=== PATIENT | male | born 1960 | race Caucasian/White ===

== ENCOUNTER 2017-08-09 18:27 | Emergency (ER) | payer MEDICARE ==
[2016-06-28 14:18] VITALS: Wt 79.4 kg
[~2017-08-09 18:27] MED LIST changes: -CHOL10005 PO; -MULT-1335 PO
--- NOTE | 2017-08-09 18:36 | ER Report ---
History and Physical Time Seen By MD: 18:36 (GRAY JORDAN) HPI/ROS CHIEF COMPLAINT: Black stool, nausea vomiting HISTORY OF PRESENT ILLNESS: 57-year-old male patient presents to emergency room with complaint of black stool, nausea or vomiting. Patient states he is not felt well for the past several days. States things got worse on Saturday. States that he's had emesis 2. He states that on Saturday he noted that his oxygen levels were low at 85%. He states that today he turned his oxygen up to 4 L. He states that that time that it remained at 85%. He states that time he decided to come into the emergency room for evaluation. Patient states he's had fevers and chills. He is concerned that he may have the flu. He states that he' s felt extremely lightheaded especially when he was moving around. REVIEW OF SYSTEMS: Respiratory: As noted above. Cardiovascular: No chest pain, no palpitations. Gastrointestinal: As noted above Musculoskeletal: No back pain. (GRAY JORDAN) Allergies: Coded Allergies: NSAIDS (Non-Steroidal Anti-Inflamma (Verified Allergy, Severe, ANAPHYLACTIC, 08/09/17) iodine (Verified Allergy, Severe, FLUSHING, SHORTNESS OF BREATH, 08/09/17) ALSO WITH IV CONTRAST FOR CT SCANS tolmetin (Verified Allergy, Severe, ANAPHYLAXIS, 08/09/17) colchicine (Verified Allergy, Mild, RED STREAKS FROM ANKLES TO CALVES, ) allopurinol (Verified Allergy, Unknown, RASH, 08/09/17) Home Meds Reported Medications Cholecalciferol (Vitamin D3) (VITAMIN D3) 1,000 Unit Tablet, 1000 UNIT PO, TAB 08/09/17 Multivitamin With Minerals (MULTIPLE VITAMIN) 1 Each Tablet, 1 EACH PO, TAB 08/09/17 Alprazolam (XANAX) 0.5 Mg Tablet, 1 TAB PO BID, TAB 12/06/16 Trazodone Hcl (TRAZODONE HCL) 150 Mg Tablet, 1.5 TAB PO QHS Y for SLEEP, #45 MG 1 Refill 06/30/16 Past Medical/Surgical History Patient has a past medical history of seizures, NC, hypertension, sleep apnea, pneumonia, cholecystitis, prostate problems, arthritis, back pain, alcohol abuse , depression, panic disorder, substance abuse. Patient has a surgical history of laminectomy, left knee surgery, right elbow surgery, cholecystectomy. Patient has a family medical history of cancer. (GRAY JORDAN) Reviewed Nurses Notes: Yes (GRAY JORDAN) Hx Smoking: No Smoking Status: Never Smoker Exposure to Second Hand Smoke?: No Hx Substance Use Disorder: No Hx Alcohol Use: Yes (dry since september) (GRAY JORDAN) Constitutional Vital Sign - Last 24 Hours 08/09/17 08/09/17 08/09/17 08/09/17 18:27 18:29 18:30 18:32 Temp 97.7 Resp 18 B/P (MAP) 74/49 68/37 (47) 74/49 (57) O2 Delivery Nasal Cannula O2 Flow Rate 4.0 08/09/17 08/09/17 08/09/17 08/09/17 18:36 18:39 18:57 19:00 Pulse 116 B/P (MAP) 58/40 (46) 64/44 (51) 59/35 (43) Pulse Ox 100 08/09/17 08/09/17 08/09/17 08/09/17 19:27 19:42 19:57 20:00 Pulse 107 103 B/P (MAP) 77/57 (64) 78/63 (68) Pulse Ox 100 98 08/09/17 08/09/17 08/09/17 08/09/17 20:30 20:35 20:40 21:21 Pulse 102 106 B/P (MAP) 83/59 (67) 75/60 (65) Pulse Ox 98 100 08/09/17 08/09/17 08/09/17 08/09/17 21:25 21:30 22:00 22:10 Pulse 100 100 B/P (MAP) 76/61 (66) 86/51 (63) Pulse Ox 100 100 08/09/17 22:30 B/P (MAP) 113/76 (88) (HERNANDO MEAD MD) Physical Exam General Appearance: The patient is alert, has no immediate need for airway protection and no current signs of toxicity. ENT: Tympanic membranes are pearly-cherry, auditory canals are patent, mucus mucous membranes are dry. Respiratory: Chest is non tender, lungs are clear to auscultation. Cardiac: regular rate and rhythm Gastrointestinal: Abdomen is soft and non tender, no masses, bowel sounds are hypoactive. Musculoskeletal: Neck: Neck is supple and non tender. Extremities have full range of motion and are non tender. Skin: No rashes or lesions. Patient appears to be incredibly pale, is pale on the underside of his eyelids. DIFFERENTIAL DIAGNOSIS: After history and physical exam differential diagnosis was considered for anemia, GI bleed, influenza, sepsis. (GRAY JORDAN) Medical Decision Making Data Points Result Diagram: 08/09/17192608/09/171928 Laboratory Hematology Test 08/09/17 19:18 08/09/17 19:27 08/09/17 19:29 08/09/17 19:41 Influenza Virus Type A (PCR) Negative (NEGATIVE) Influenza Virus Type B (PCR) Negative (NEGATIVE) Red Blood Count 2.90 M/uL (4.00-5.60) Mean Corpuscular Volume 96.7 fL (80.0-96.0) Mean Corpuscular Hemoglobin 33.5 pg (26.0-33.0) Mean Corpuscular Hemoglobin Concent 34.6 g/dL (32.0-36.0) Red Cell Distribution Width 18.0 % (11.5-14.5) Mean Platelet Volume 8.3 fL (7.2-11.1) Neutrophils (%) (Auto) 80.7 % (39.4-72.5) Lymphocytes (%) (Auto) 14.6 % (17.6-49.6) Monocytes (%) (Auto) 4.4 % (4.1-12.4) Eosinophils (%) (Auto) 0.1 % (0.4-6.7) Basophils (%) (Auto) 0.2 % (0.3-1.4) Nucleated RBC Relative Count (auto) 0.1 /100WBC Neutrophils # (Auto) 13.8 K/uL (2.0-7.4) Lymphocytes # (Auto) 2.5 K/uL (1.3-3.6) Monocytes # (Auto) 0.8 K/uL (0.3-1.0) Eosinophils # (Auto) 0.0 K/uL (0.0-0.5) Basophils # (Auto) 0.0 K/uL (0.0-0.1) Nucleated RBC Absolute Count (auto) 0.01 K/uL Prothrombin Time 15.3 seconds (12.0-14.4) Prothromb Time International Ratio 1.20 Activated Partial Thromboplast Time 31 seconds (23-35) Lactate 8.1 mmol/L (0.7-2.1) Troponin I 0.020 ng/ml Sodium Level 136 mmol/L (137-145) Potassium Level 3.4 mmol/L (3.5-5.0) Chloride Level 88 mmol/L (98-107) Carbon Dioxide Level 29 mmol/L (22-30) Blood Urea Nitrogen 55 mg/dl (9-21) Creatinine 1.70 mg/dl (0.66-1.25) Glomerular Filtration Rate Calc 41.5 Random Glucose 122 mg/dl (75-110) Calcium Level 8.0 mg/dl (8.4-10.2) Total Bilirubin 1.2 mg/dl (0.2-1.3) Aspartate Amino Transf (AST/SGOT) 30 U/L (0-35) Alanine Aminotransferase (ALT/SGPT) 24 U/L (0-56) Alkaline Phosphatase 43 U/L (0-126) Total Protein 5.2 gm/dl (6.3-8.2) Albumin 2.8 g/dl (3.5-5.0) Amylase Level 47 U/L (0-110) Lipase 68 U/L (23-300) Stool Occult Blood (IFOB) Negative (NEGATIVE) Test 08/09/17 22:30 Urine Color Yellow Urine Clarity Slightly-cloudy Urine pH 6.0 pH (4.8-9.5) Urine Specific Ralph 1.026 Urine Protein Negative mg/dL (NEGATIVE) Urine Glucose (UA) Negative mg/dL (NEGATIVE) Urine Ketones Negative mg/dL (NEGATIVE) Urine Blood Negative (NEGATIVE) Urine Nitrite Negative (NEGATIVE) Urine Bilirubin Negative (NEGATIVE) Urine Urobilinogen Negative mg/dL (0.2-1.9) Urine Leukocyte Esterase Negative (NEGATIVE) Urine RBC None /HPF (0-2/HPF) Urine WBC 3 /HPF (0-5/HPF) Urine Squamous Epithelial Cells None /LPF (NONE-FEW) Urine Bacteria Negative /HPF (NONE-FEW) Urine Hyaline Casts Many /LPF (NONE-FEW) Urine Mucus Few /HPF (NONE-FEW) Chemistry Test 08/09/17 19:18 08/09/17 19:27 08/09/17 19:29 08/09/17 19:41 Influenza Virus Type A (PCR) Negative (NEGATIVE) Influenza Virus Type B (PCR) Negative (NEGATIVE) White Blood Count 17.1 k/uL (4.5-11.0) Red Blood Count 2.90 M/uL (4.00-5.60) Hemoglobin 9.7 g/dL (14.0-18.0) Hematocrit 28.1 % (42.0-52.0) Mean Corpuscular Volume 96.7 fL (80.0-96.0) Mean Corpuscular Hemoglobin 33.5 pg (26.0-33.0) Mean Corpuscular Hemoglobin Concent 34.6 g/dL (32.0-36.0) Red Cell Distribution Width 18.0 % (11.5-14.5) Platelet Count 156 K/uL (150-450) Mean Platelet Volume 8.3 fL (7.2-11.1) Neutrophils (%) (Auto) 80.7 % (39.4-72.5) Lymphocytes (%) (Auto) 14.6 % (17.6-49.6) Monocytes (%) (Auto) 4.4 % (4.1-12.4) Eosinophils (%) (Auto) 0.1 % (0.4-6.7) Basophils (%) (Auto) 0.2 % (0.3-1.4) Nucleated RBC Relative Count (auto) 0.1 /100WBC Neutrophils # (Auto) 13.8 K/uL (2.0-7.4) Lymphocytes # (Auto) 2.5 K/uL (1.3-3.6) Monocytes # (Auto) 0.8 K/uL (0.3-1.0) Eosinophils # (Auto) 0.0 K/uL (0.0-0.5) Basophils # (Auto) 0.0 K/uL (0.0-0.1) Nucleated RBC Absolute Count (auto) 0.01 K/uL Prothrombin Time 15.3 seconds (12.0-14.4) Prothromb Time International Ratio 1.20 Activated Partial Thromboplast Time 31 seconds (23-35) Lactate 8.1 mmol/L (0.7-2.1) Troponin I 0.020 ng/ml Glomerular Filtration Rate Calc 41.5 Calcium Level 8.0 mg/dl (8.4-10.2) Total Bilirubin 1.2 mg/dl (0.2-1.3) Aspartate Amino Transf (AST/SGOT) 30 U/L (0-35) Alanine Aminotransferase (ALT/SGPT) 24 U/L (0-56) Alkaline Phosphatase 43 U/L (0-126) Total Protein 5.2 gm/dl (6.3-8.2) Albumin 2.8 g/dl (3.5-5.0) Amylase Level 47 U/L (0-110) Lipase 68 U/L (23-300) Stool Occult Blood (IFOB) Negative (NEGATIVE) Test 08/09/17 22:30 Urine Color Yellow Urine Clarity Slightly-cloudy Urine pH 6.0 pH (4.8-9.5) Urine Specific Ralph 1.026 Urine Protein Negative mg/dL (NEGATIVE) Urine Glucose (UA) Negative mg/dL (NEGATIVE) Urine Ketones Negative mg/dL (NEGATIVE) Urine Blood Negative (NEGATIVE) Urine Nitrite Negative (NEGATIVE) Urine Bilirubin Negative (NEGATIVE) Urine Urobilinogen Negative mg/dL (0.2-1.9) Urine Leukocyte Esterase Negative (NEGATIVE) Urine RBC None /HPF (0-2/HPF) Urine WBC 3 /HPF (0-5/HPF) Urine Squamous Epithelial Cells None /LPF (NONE-FEW) Urine Bacteria Negative /HPF (NONE-FEW) Urine Hyaline Casts Many /LPF (NONE-FEW) Urine Mucus Few /HPF (NONE-FEW) Coagulation Test 08/09/17 19:27 Prothrombin Time 15.3 seconds Prothromb Time International Ratio 1.20 Activated Partial Thromboplast Time 31 seconds Urinalysis Test 08/09/17 22:30 Urine Color Yellow Urine Clarity Slightly-cloudy Urine pH 6.0 pH (4.8-9.5) Urine Specific Ralph 1.026 Urine Protein Negative mg/dL (NEGATIVE) Urine Glucose (UA) Negative mg/dL (NEGATIVE) Urine Ketones Negative mg/dL (NEGATIVE) Urine Blood Negative (NEGATIVE) Urine Nitrite Negative (NEGATIVE) Urine Bilirubin Negative (NEGATIVE) Urine Urobilinogen Negative mg/dL (0.2-1.9) Urine Leukocyte Esterase Negative (NEGATIVE) Urine RBC None /HPF (0-2/HPF) Urine WBC 3 /HPF (0-5/HPF) Urine Squamous Epithelial Cells None /LPF (NONE-FEW) Urine Bacteria Negative /HPF (NONE-FEW) Urine Hyaline Casts Many /LPF (NONE-FEW) Urine Mucus Few /HPF (NONE-FEW) (HERNANDO MEAD MD) EKG/Imaging EKG Interpretation 12 lead EKG: Rhythm: Sinus tachycardia with ventricular rate of 115 bpm [place]: normal QRS: normal ST segments: normal Imaging EXAMINATION: CT abdomen and pelvis with IV contrast HISTORY: Vomiting. TECHNIQUE: Axial CT images of the abdomen and pelvis were obtained with IV contrast, with coronal and sagittal 2D reconstructed images. One of the following dose optimization techniques was utilized in the performance of this exam: Automated exposure control; adjustment of the mA and/ or kV according to the patient's size; or use of an iterative reconstruction technique. Specific details can be referenced in the facility's radiology CT exam operational policy. Contrast: 75 mL of IV Isovue-370. COMPARISON: CT abdomen without contrast 01/23/2013. CT abdomen/pelvis without contrast 02/28/2009. FINDINGS: Liver: Diffuse fatty infiltration of the liver. No focal liver mass. The hepatic veins and portal veins are patent. Gallbladder and bile ducts: Cholecystectomy. No bile duct dilatation. Spleen: Negative. Pancreas: Negative. Adrenal glands: Negative. Kidneys: Normal size and morphology of both kidneys, with normal parenchymal enhancement. No hydronephrosis or urinary calculi. Bowel and peritoneum: The small bowel and colon are normal in caliber. No bowel obstruction. There are few scattered colonic diverticula, without evidence of diverticulitis. Adjacent to the mid sigmoid colon in the anterior left pelvis there is a small focus of pericolonic stranding with rounded central fat attenuation, with a characteristic CT appearance for epiploic appendagitis (axial image 107 and coronal image 46). No bowel wall thickening. Unremarkable appendix in the mid right abdomen. Small hiatal hernia. No free fluid or free intraperitoneal air. Pelvic structures: Negative. Lymph node assessment: Negative. Vessels: Negative. Musculoskeletal: There is mild superior endplate wedging of T12, L1, L2, L3, and L4, likely chronic in nature. No acute osseous findings. Body wall: Negative. Lung bases: Negative. IMPRESSION: 1. There is some localized pericolonic stranding adjacent to the mid sigmoid colon with a rounded focus of central fat attenuation. This has a typical CT appearance for epiploic appendagitis, which could be acute or nonacute. This could represent a source of left lower quadrant pain and should be correlated clinically. 2. No other acute intra-abdominal findings. 3. Colonic diverticulosis, without evidence of diverticulitis. 4. Unremarkable appendix. 5. Hepatic steatosis. 6. Prior cholecystectomy. 7. Small hiatal hernia. Report Dictated By: Alec Bowen MD at 08/09/2017 9:27 PM Report E-Signed By: Alec Bowen MD at 08/09/2017 9:36 PM CHEST PA AND LATERAL 08/09/2017 6:45 PM. INDICATION: Shortness of breath. COMPARISON: Multiple prior examinations including CT and radiographs from 2016. FINDINGS: Lungs are well-expanded. No suspicious consolidation. Pleural parenchymal changes at the left lateral costophrenic sulcus are similar to prior. No pneumothorax or pleural effusion. Pulmonary vasculature is unremarkable. Heart size is normal. Bilateral remote rib fractures and presumed postoperative absence of the posterior aspect of the left 5th rib. IMPRESSION: No acute cardiopulmonary abnormality. Report Dictated By: Candido Rutherford MD at 08/09/2017 8:30 PM Report E-Signed By: Candido Rutherford MD at 08/09/2017 8:32 PM (GRAY JORDAN) ED Course/Re-evaluation ED Course Patient was admitted to an exam room, history and physical were obtained. Differential diagnoses were considered. On examination patient has no obvious abdominal tenderness, does have what appears to be blood on his face and on his left hand. Blood pressure is low, 70s over 50s. Patient appears very pale, is pale under his eyelids. A CBC, CMP, urinalysis, EKG, chest x-ray, type and screen were done. Patient had an elevated white count of 17,000, H&H was 9.7 and 16. I believe that that is likely due to the patient being hemoconcentrated. CMP shows a be in of 55 and a creatinine 1.7. An occult stool sample was obtained which was negative. Lactic acid was obtained which was 8.1. Urinalysis was obtained as well which showed 3 white blood cells otherwise negative. A culture was obtained as well as blood cultures. I discussed the case with Dr. Roberts, general surgeon, who recommended CT scan of the abdomen and pelvis. That was done which showed a epiploic appendagitis. I did review the images myself and was unable to find the area in which the radiologist was talking about. I discussed the results with Dr. Roberts, she recommended admission to the hospitalist as she is concerned about a possible sepsis. I spoke with Dr. Murdock, hospitalist. He felt that this was a GI bleed and recommended transfer to a more acute setting. I then spoke with Dr. Wahl and Dr. Olmedo, gastro-gastroenterology and hospitalist at [facility], who recommended octreotide, making the patient nothing by mouth, placing him on a PPI drip, giving him antibiotics and accept the patient for transfer. He also recommended a PT and PTT to be done. Those results were INR of 1.3, PTT of 15. I discussed this with the patient who verbalized understanding and agreement with plan. Decision to Disposition Date: Aug 09, 2017 Decision to Disposition Time: 23:24 (GRAY JORDAN) Depart Departure Latest Vital Signs Vital Signs Date Time Temp Pulse Resp B/P (MAP) Pulse Ox O2 Delivery O2 Flow Rate FiO2 08/09/17 22:30 113/76 (88) 08/09/17 22:10 100 100 08/09/17 18:29 97.7 18 Nasal Cannula 08/09/17 18:27 4.0 (HERNANDO MEAD MD) Impression: Primary Impression: GI bleed Additional Impressions: Lactic acid acidosis Dehydration Condition: Condition Unchanged Disposition: XFER TO [facility] Referrals: BRAULIO CONCEPCION (PCP) LACE WEAVER/PA consult with MD: Verbally (HERNANDO MEAD MD) Problem Qualifiers Primary Impression: GI bleed GI bleed type/associated pathology: unspecified gastrointestinal hemorrhage type Qualified Codes: K92.2 - Gastrointestinal hemorrhage, unspecified GRAY JORDAN Aug 09, 2017 18:36 HERNANDO MEAD MD Aug 10, 2017 00:43
[2017-08-09] MEDS ORDERED: ONDANSETRON 4 MG/2 ML VIAL IVP ONE (18:45)
[2017-08-09] MEDS ORDERED: PANTOPRAZOLE SOD(*)40 MG VIAL 80 MG in NS(*) 0.9% 100 ML BAG 100 ML IV SCH (18:45)
[2017-08-09] MEDS ORDERED: NS(*) 0.9% 1000 ML BAG 1,000 ML IV ONE ×3 (18:45→22:00)
--- NOTE | 2017-08-09 19:09 | EKG ---
FAC[place] [facility] [place]IENT NAME: CLEMENTE RIVERA : [id number] MR: [id number] V: [id number] EXAM DATE: ORDERING PHYSICIAN: GRAY JORDAN TECHNOLOGIST: ISAK Gordon Reason : FLU Blood Pressure : / mmHG Vent. Rate : 115 BPM Atrial Rate : 115 BPM P-R Int : 140 ms QRS Dur : 088 ms QT Int : 362 ms P-R-T Axes : 027 -25 063 degrees QTc Int : 500 ms Sinus tachycardia Inferior infarct (cited on or before 09-AUG-2017) Abnormal ECG When compared with ECG of 06-DEC-2016 15:48, T wave amplitude has increased in Anterior leads Confirmed by ALVINO CARBAJAL ([id number]) on 08/09/2017 11:25:00 PM Referred By: GRAY Confirmed By:ALVINO CARBAJAL
[2017-08-09 19:38] LABS: PLATELET COUNT, AUTOMATED 156 K/uL (150-450)
[2017-08-09] MEDS ORDERED: MULT-1335 PO (19:45)
[2017-08-09] MEDS ORDERED: CHOL10005 PO (19:45)
[2017-08-09] MEDS ORDERED: IOPAMIDOL 76% 75 ML INFUS BTL 75 ML ONE (20:31)
--- NOTE | 2017-08-09 20:36 | RADIOLOGY IMAGING REPORT ---
FACILITY: [facility] PATIENT NAME: Godfrey Marino : 1960 MR: [id number] V: [id number] EXAM DATE: ORDERING PHYSICIAN: GRAY JORDAN TECHNOLOGIST: Location: [facility] Patient: Godfrey Marino : 1960 Visit/Account:[id number] Date of Sevice: 08/09/2017 CHEST PA AND LATERAL 08/09/2017 6:45 PM. INDICATION: Shortness of breath. COMPARISON: Multiple prior examinations including CT and radiographs from 12/06/2016. FINDINGS: Lungs are well-expanded. No suspicious consolidation. Pleural parenchymal changes at the left lateral costophrenic sulcus are similar to prior. No pneumothorax or pleural effusion. Pulmona ry vasculature is unremarkable. Heart size is normal. Bilateral remote rib fractures and presumed p ostoperative absence of the posterior aspect of the left 5th rib. IMPRESSION: No acute cardiopulmonary abnormality. Report Dictated By: Candido Rutherford MD at 08/09/2017 8:30 PM Report E-Signed By: Candido Rutherford MD at 08/09/2017 8:32 PM [id number]
--- NOTE | 2017-08-09 21:40 | RADIOLOGY IMAGING REPORT ---
FACILITY: [facility] PATIENT NAME: Godfrey Marino : 1960 MR: [id number] V: [id number] EXAM DATE: ORDERING PHYSICIAN: GRAY JORDAN TECHNOLOGIST: Location: [facility] Patient: Godfrey Marino : 1960 Visit/Account:[id number] Date of Sevice: 08/09/2017 EXAMINATION: CT abdomen and pelvis with IV contrast HISTORY: Vomiting. TECHNIQUE: Axial CT images of the abdomen and pelvis were obtained with IV contrast, with coronal a nd sagittal 2D reconstructed images. One of the following dose optimization techniques was utilized in the performance of this exam: Autom ated exposure control; adjustment of the mA and/or kV according to the patient's size; or use of an i terative reconstruction technique. Specific details can be referenced in the facility's radiology C T exam operational policy. Contrast: 75 mL of IV Isovue-370. COMPARISON: CT abdomen without contrast 01/23/2013. CT abdomen/pelvis without contrast 02/28/2009. FINDINGS: Liver: Diffuse fatty infiltration of the liver. No focal liver mass. The hepatic veins and portal ve ins are patent. Gallbladder and bile ducts: Cholecystectomy. No bile duct dilatation. Spleen: Negative. Pancreas: Negative. Adrenal glands: Negative. Kidneys: Normal size and morphology of both kidneys, with normal parenchymal enhancement. No hydrone phrosis or urinary calculi. Bowel and peritoneum: The small bowel and colon are normal in caliber. No bowel obstruction. There a re few scattered colonic diverticula, without evidence of diverticulitis. Adjacent to the mid sigmoid colon in the anterior left pelvis there is a small focus of pericolonic stranding with rounded centr al fat attenuation, with a characteristic CT appearance for epiploic appendagitis (axial image 107 an d coronal image 46). No bowel wall thickening. Unremarkable appendix in the mid right abdomen. Small hiatal hernia. No free fluid or free intraperitoneal air. Pelvic structures: Negative. Lymph node assessment: Negative. Vessels: Negative. Musculoskeletal: There is mild superior endplate wedging of T12, L1, L2, L3, and L4, likely chronic in nature. No acute osseous findings. Body wall: Negative. Lung bases: Negative. IMPRESSION: 1. There is some localized pericolonic stranding adjacent to the mid sigmoid colon with a rounded foc us of central fat attenuation. This has a typical CT appearance for epiploic appendagitis, which coul d be acute or nonacute. This could represent a source of left lower quadrant pain and should be corre lated clinically. 2. No other acute intra-abdominal findings. 3. Colonic diverticulosis, without evidence of diverticulitis. 4. Unremarkable appendix. 5. Hepatic steatosis. 6. Prior cholecystectomy. 7. Small hiatal hernia. Report Dictated By: Alec Bowen MD at 08/09/2017 9:27 PM Report E-Signed By: Alec Bowen MD at 08/09/2017 9:36 PM WSN:[id number]
[2017-08-09] MEDS ORDERED: LIDOCAINE 2% 200MG/10ML UROJET TP ONE (22:05)
[2017-08-09] MEDS ORDERED: PIPERACILLIN/TAZO*3.375GM VIAL 3.375 GM in NS(*) 0.9% 100 ML ADDVANT BAG 100 ML IVPB ONE (23:10)
[2017-08-09] MEDS ORDERED: OCTREOTIDE ACE 200 MCG/ML 5 ML VIAL IVP ONE (23:20)
[2017-08-09] MEDS ORDERED: PANTOPRAZOLE SOD(*)40 MG VIAL 80 MG in NS(*) 0.9% 100 ML BAG 100 ML IV ONE (23:20)
[2017-08-09 23:26] LABS: INR 1.2
[2017-08-10] MEDS ORDERED: ONDANSETRON 4 MG/2 ML VIAL IVP ONE (00:35)
[2017-08-10 01:30] VITALS: BP 107/71
== END 2017-08-10 02:20 | disposition short-term general hospital (02) ==
LOC: ER 18:46
DX: K92.2 Gastrointestinal hemorrhage, unspecified (principal); E87.2 Acidosis; E86.0 Dehydration
CPT/HCPCS: 36415; 71046; 74177; 81001; 82150; 82274; 83605; 83690; 84484; 85025; 85610; 85730; 86850; 86900; 86901; 87040; 87088; 87502; 93005; 96361; 96365; 96366; 96367; 96375; 96376; 99285; A9270; C9113; J2405; J2543; J7030; J7050; Q9967; 82040; 82247; 82310; 82374; 82435; 82565; 82947; 84075; 84132; 84155; 84295; 84450; 84460; 84520; 87077; 87186; J2354

== ENCOUNTER → 2017-08-09 | Outpatient (CLI) | payer MEDICARE ==
[2016-06-28 14:18] VITALS: BMI 35.1
[~2017-08-09] MED LIST: ACE500 PO; ALP1 PO; ALPR-429 PO; ALPR-436 PO; ALPR-445 PO; ALPR-700 PO; AML5 PO; ASCO-191 PO; AUG875 PO; AZI250 PO; Alprazolam PO; CARV12.577 PO; CEP500 PO; CEPH-13 PO; CEPH250C37 PO; CHOL10005 PO; CHOL200074 PO; DABI150C3 PO; DIA5 PO; DUL30 PO; FOLTX PO; GABA-488 PO; GABA-490 PO; KRIL1CAP12 PO; LACT1CAP12 PO; LID5T TP; LIS10 PO; LISI-362 PO; LISI20TA29 PO; LOR5/325 PO; MAGN300C3 PO; MAGN400C PO; MAGN400T36 PO; MAGN400T37 PO; MAGN400T4 PO; MET4 PO; METAMUCIL283 GM PO; METXL50 PO; MULT-1335 PO; MULT-1379 PO; MULT-885 PO; MULT1TAB54 PO; Magnesium Oxide PO; NALT50TA15 PO; NEOM28OI14 TP; NICO-218 TD; OMEG500C7 PO; OXYGEN INH; PER PO; PHEN100C82 PO; PHEN15TA15 PO; POTA-23 PO; POTA20TA85 PO; PRE20 PO; PRE5 PO; PROT480P2 PO; PSYL822P15 PO; Pantoprazole Sod PO; Potassium Chloride PO; SAW450CA3 PO; SERT-1 PO; TER2 PO; THIA100T55 PO; TRAM-420 PO; TRAZ150T8 PO; UBID400C6 PO; VENL-1 PO; VITA-200 PO; [UNRECOGNIZED DRUG - CODE] PO; bp med
== END ==
LOC: AMB 18:01
PROVIDERS: ATTEND Nurse Practitioner
DX: R11.11 Vomiting without nausea (principal); R53.1 Weakness
CPT/HCPCS: A0425; A0427

== ENCOUNTER → 2017-08-10 | Outpatient (CLI) | payer MEDICARE ==
[2016-06-28 14:18] VITALS: BMI 35.1
[~2017-08-10] MED LIST changes: +CHOL10005 PO; +MULT-1335 PO
== END ==
LOC: AMB 02:03
PROVIDERS: ATTEND Nurse Practitioner
DX: K92.2 Gastrointestinal hemorrhage, unspecified (principal)
CPT/HCPCS: A0425; A0426

== ENCOUNTER 2017-09-29 14:50 | Emergency (ER) | payer MEDICARE ==
[2016-06-28 14:18] VITALS: Wt 68.1 kg
--- NOTE | 2017-09-29 15:16 | ER Report ---
History and Physical Time Seen By MD: 15:16 Hx. of Stated Complaint: WEAKNESS AND SEVERAL FALLS OVER THE LAST WEEK. HPI/ROS This is a 57-year-old male, very pleasant, who presents stating that he has felt off balance for months and worse over the past few days. He fell at home. He does not have any pain or injuries, but came to the ED via EMS to find out why he has been falling lately. Also complains of muscle twitching. No other complaints. He has a history of heavy alcohol use with frequent admissions for withdrawal, but has not drank since 04/16/2017. Remainder of the 14 system rev: Yes Allergies: Coded Allergies: NSAIDS (Non-Steroidal Anti-Inflamma (Verified Allergy, Severe, ANAPHYLACTIC, 09/29/17) iodine (Verified Allergy, Severe, FLUSHING, SHORTNESS OF BREATH, 09/29/17) ALSO WITH IV CONTRAST FOR CT SCANS tolmetin (Verified Allergy, Severe, ANAPHYLAXIS, 09/29/17) colchicine (Verified Allergy, Mild, RED STREAKS FROM ANKLES TO CALVES, ) allopurinol (Verified Allergy, Unknown, RASH, 09/29/17) Home Meds Reported Medications Cholecalciferol (Vitamin D3) (VITAMIN D3) 1,000 Unit Tablet, 1000 UNIT PO, TAB 08/09/17 Multivitamin With Minerals (MULTIPLE VITAMIN) 1 Each Tablet, 1 EACH PO, TAB 08/09/17 Alprazolam (XANAX) 0.5 Mg Tablet, 1 TAB PO BID, TAB 12/06/16 Trazodone Hcl (TRAZODONE HCL) 150 Mg Tablet, 1.5 TAB PO QHS Y for SLEEP, #45 MG 1 Refill 06/30/16 Reviewed Nurses Notes: Yes Old Medical Records Reviewed: Yes Hx Smoking: No Smoking Status: Never Smoker Exposure to Second Hand Smoke?: No Hx Substance Use Disorder: No Hx Alcohol Use: Yes (dry since september) Constitutional Vital Sign - Last 24 Hours 09/29/17 14:59 Temp 97.9 Pulse 100 Resp 16 B/P (MAP) 164/102 Pulse Ox 92 O2 Delivery Room Air Intake and Output 09/29/17 09/29/17 09/30/17 15:00 23:00 07:00 Intake Total 1000 ml Balance 1000 ml Physical Exam General Appearance: The patient is alert, has no immediate need for airway protection and no current signs of toxicity. Eyes: Pupils equal and round no injection. Respiratory: Chest is non tender, lungs are clear to auscultation. Cardiac: regular rate and rhythm Gastrointestinal: Abdomen is soft and non tender, no masses, bowel sounds normal. Musculoskeletal: Neck: Neck is supple and non tender. Extremities have full range of motion and are non tender. Skin: healing abrasion to his forehead. Neuro exam: gait at baseline. walks with a cane, normal strength and sensation with distraction. DIFFERENTIAL DIAGNOSIS: After history and physical exam differential diagnosis was considered for weakness including but not limited to electrolyte abnormality , depression, anxiety, CVA, spinal cord abnormality, and infectious causes. Medical Decision Making Data Points Result Diagram: 09/29/17 1437 09/29/17 1437 Laboratory Hematology Test 09/29/17 14:37 09/29/17 15:35 Red Blood Count 4.18 M/uL (4.00-5.60) Mean Corpuscular Volume 84.3 fL (80.0-96.0) Mean Corpuscular Hemoglobin 29.6 pg (26.0-33.0) Mean Corpuscular Hemoglobin Concent 35.1 g/dL (32.0-36.0) Red Cell Distribution Width 19.7 % (11.5-14.5) Mean Platelet Volume 8.8 fL (7.2-11.1) Neutrophils (%) (Auto) 78.8 % (39.4-72.5) Lymphocytes (%) (Auto) 13.2 % (17.6-49.6) Monocytes (%) (Auto) 7.3 % (4.1-12.4) Eosinophils (%) (Auto) 0.3 % (0.4-6.7) Basophils (%) (Auto) 0.4 % (0.3-1.4) Nucleated RBC Relative Count (auto) 0.0 /100WBC Neutrophils # (Auto) 8.4 K/uL (2.0-7.4) Lymphocytes # (Auto) 1.4 K/uL (1.3-3.6) Monocytes # (Auto) 0.8 K/uL (0.3-1.0) Eosinophils # (Auto) 0.0 K/uL (0.0-0.5) Basophils # (Auto) 0.0 K/uL (0.0-0.1) Nucleated RBC Absolute Count (auto) 0.00 K/uL Sodium Level 136 mmol/L (137-145) Potassium Level 3.0 mmol/L (3.5-5.0) Chloride Level 95 mmol/L (98-107) Carbon Dioxide Level 27 mmol/L (22-30) Blood Urea Nitrogen 11 mg/dl (9-21) Creatinine 1.00 mg/dl (0.66-1.25) Glomerular Filtration Rate Calc > 60.0 Random Glucose 109 mg/dl (75-110) Calcium Level 9.3 mg/dl (8.4-10.2) Total Bilirubin 1.2 mg/dl (0.2-1.3) Aspartate Amino Transf (AST/SGOT) 60 U/L (0-35) Alanine Aminotransferase (ALT/SGPT) 40 U/L (0-56) Alkaline Phosphatase 81 U/L (0-126) Ammonia < 9 UMOL/L (9-33) Troponin I < 0.012 ng/ml Total Protein 6.5 gm/dl (6.3-8.2) Albumin 3.6 g/dl (3.5-5.0) Serum Alcohol < 10 mg/dl Urine Color Yellow Urine Clarity Clear Urine pH 6.0 pH (4.8-9.5) Urine Specific [place] 1.011 Urine Protein Negative mg/dL (NEGATIVE) Urine Glucose (UA) Negative mg/dL (NEGATIVE) Urine Ketones Negative mg/dL (NEGATIVE) Urine Blood Negative (NEGATIVE) Urine Nitrite Negative (NEGATIVE) Urine Bilirubin Negative (NEGATIVE) Urine Urobilinogen 2.0 mg/dL (0.2-1.9) Urine Leukocyte Esterase Negative (NEGATIVE) Urine RBC <1 /HPF (0-2/HPF) Urine WBC <1 /HPF (0-5/HPF) Urine Squamous Epithelial Cells Few /LPF (</=FEW) Urine Bacteria Negative /HPF (NONE-FEW) Urine Hyaline Casts Few /LPF (NONE-FEW) Urine Mucus Few /HPF (NONE-FEW) Urine Opiates Screen Negative Urine Barbiturates Screen Negative Ur Tricyclic Antidepressants Screen Negative Urine Phencyclidine Screen Negative Urine Amphetamines Screen Negative Urine Benzodiazepines Screen Positive Urine Cocaine Screen Negative Urine Cannabinoids Screen Negative Chemistry Test 09/29/17 14:37 09/29/17 15:35 White Blood Count 10.7 k/uL (4.5-11.0) Red Blood Count 4.18 M/uL (4.00-5.60) Hemoglobin 12.4 g/dL (14.0-18.0) Hematocrit 35.2 % (42.0-52.0) Mean Corpuscular Volume 84.3 fL (80.0-96.0) Mean Corpuscular Hemoglobin 29.6 pg (26.0-33.0) Mean Corpuscular Hemoglobin Concent 35.1 g/dL (32.0-36.0) Red Cell Distribution Width 19.7 % (11.5-14.5) Platelet Count 181 K/uL (150-450) Mean Platelet Volume 8.8 fL (7.2-11.1) Neutrophils (%) (Auto) 78.8 % (39.4-72.5) Lymphocytes (%) (Auto) 13.2 % (17.6-49.6) Monocytes (%) (Auto) 7.3 % (4.1-12.4) Eosinophils (%) (Auto) 0.3 % (0.4-6.7) Basophils (%) (Auto) 0.4 % (0.3-1.4) Nucleated RBC Relative Count (auto) 0.0 /100WBC Neutrophils # (Auto) 8.4 K/uL (2.0-7.4) Lymphocytes # (Auto) 1.4 K/uL (1.3-3.6) Monocytes # (Auto) 0.8 K/uL (0.3-1.0) Eosinophils # (Auto) 0.0 K/uL (0.0-0.5) Basophils # (Auto) 0.0 K/uL (0.0-0.1) Nucleated RBC Absolute Count (auto) 0.00 K/uL Glomerular Filtration Rate Calc > 60.0 Calcium Level 9.3 mg/dl (8.4-10.2) Total Bilirubin 1.2 mg/dl (0.2-1.3) Aspartate Amino Transf (AST/SGOT) 60 U/L (0-35) Alanine Aminotransferase (ALT/SGPT) 40 U/L (0-56) Alkaline Phosphatase 81 U/L (0-126) Ammonia < 9 UMOL/L (9-33) Troponin I < 0.012 ng/ml Total Protein 6.5 gm/dl (6.3-8.2) Albumin 3.6 g/dl (3.5-5.0) Serum Alcohol < 10 mg/dl Urine Color Yellow Urine Clarity Clear Urine pH 6.0 pH (4.8-9.5) Urine Specific [place] 1.011 Urine Protein Negative mg/dL (NEGATIVE) Urine Glucose (UA) Negative mg/dL (NEGATIVE) Urine Ketones Negative mg/dL (NEGATIVE) Urine Blood Negative (NEGATIVE) Urine Nitrite Negative (NEGATIVE) Urine Bilirubin Negative (NEGATIVE) Urine Urobilinogen 2.0 mg/dL (0.2-1.9) Urine Leukocyte Esterase Negative (NEGATIVE) Urine RBC <1 /HPF (0-2/HPF) Urine WBC <1 /HPF (0-5/HPF) Urine Squamous Epithelial Cells Few /LPF (</=FEW) Urine Bacteria Negative /HPF (NONE-FEW) Urine Hyaline Casts Few /LPF (NONE-FEW) Urine Mucus Few /HPF (NONE-FEW) Urine Opiates Screen Negative Urine Barbiturates Screen Negative Ur Tricyclic Antidepressants Screen Negative Urine Phencyclidine Screen Negative Urine Amphetamines Screen Negative Urine Benzodiazepines Screen Positive Urine Cocaine Screen Negative Urine Cannabinoids Screen Negative Toxicology Test 09/29/17 14:37 09/29/17 15:35 Serum Alcohol < 10 mg/dl Urine Opiates Screen Negative Urine Barbiturates Screen Negative Ur Tricyclic Antidepressants Screen Negative Urine Phencyclidine Screen Negative Urine Amphetamines Screen Negative Urine Benzodiazepines Screen Positive Urine Cocaine Screen Negative Urine Cannabinoids Screen Negative Urinalysis Test 09/29/17 15:35 Urine Color Yellow Urine Clarity Clear Urine pH 6.0 pH (4.8-9.5) Urine Specific [place] 1.011 Urine Protein Negative mg/dL (NEGATIVE) Urine Glucose (UA) Negative mg/dL (NEGATIVE) Urine Ketones Negative mg/dL (NEGATIVE) Urine Blood Negative (NEGATIVE) Urine Nitrite Negative (NEGATIVE) Urine Bilirubin Negative (NEGATIVE) Urine Urobilinogen 2.0 mg/dL (0.2-1.9) Urine Leukocyte Esterase Negative (NEGATIVE) Urine RBC <1 /HPF (0-2/HPF) Urine WBC <1 /HPF (0-5/HPF) Urine Squamous Epithelial Cells Few /LPF (</=FEW) Urine Bacteria Negative /HPF (NONE-FEW) Urine Hyaline Casts Few /LPF (NONE-FEW) Urine Mucus Few /HPF (NONE-FEW) ED Course/Re-evaluation ED Course 57-year-old male with a past history of heavy alcohol use and abuse and has not drank since March 2017 presents to the emergency department with feeling off balance for the past 2-3 months and also having frequent falls at home over the past week. He has no complaints of focal pain or injury, but thought he may be dehydrated and that was the reason for his frequent falls. Also states that he has frequent muscle cramping. His CT scan of his head was at baseline with no acute findings. His labs and electrolytes were at his baseline other than no for mild hypokalemia. He was given potassium in the emergency department and I told him that that could be the cause for his feeling generalized weakness and therefore somewhat off-balance. I think he probably has residual balance deficits from his previous heavy alcohol use. I counseled him to follow up with his primary care physician to discuss possible use of daily potassium. He states that he has done that in the past but is not currently taking potassium daily. Counseled him on safety and fall risks. He states that he understands. He will call his primary care doctor tomorrow in follow-up this week. Decision to Disposition Date: Sep 29, 2017 Decision to Disposition Time: 17:59 Depart Departure Latest Vital Signs Vital Signs Date Time Temp Pulse Resp B/P (MAP) Pulse Ox O2 Delivery O2 Flow Rate FiO2 09/29/17 14:59 97.9 100 16 164/102 92 Room Air Impression: Primary Impression: Fall Additional Impressions: Hypokalemia Balance problem Condition: Improved Disposition: HOME OR SELF-CARE Referrals: AMANDA FAROOQ DO (PCP) Patient Instructions: Fall Prevention (ED), Hypokalemia (ED) Problem Qualifiers Primary Impression: Fall Encounter type: initial encounter Qualified Codes: W19.XXXA - Unspecified fall, initial encounter MARIE SANON MD Sep 29, 2017 15:16
[2017-09-29] MEDS ORDERED: NS(*) 0.9% 1000 ML BAG 1,000 ML IV ONE (15:34)
[2017-09-29 15:48] LABS: PLATELET COUNT, AUTOMATED 181 K/uL (150-450)
[2017-09-29] MEDS ORDERED: EMS NS 0.9%(*) 1000 ML BAG 1,000 ML IV ONE (15:50)
[2017-09-29] MEDS ORDERED: POTASSIUM CHL 20 MEQ TABCR PO ONE (16:20)
--- NOTE | 2017-09-29 16:34 | EKG ---
FAC[facility] PATIENT NAME: CLEMENTE RIVERA : [id number] MR: [id number] V: [id number] EXAM DATE: ORDERING PHYSICIAN: MARIE SANON TECHNOLOGIST: OCTAVIO Test Reason : WEAKNESS Blood Pressure : / mmHG Vent. 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
--- NOTE | 2017-09-29 16:55 | RADIOLOGY IMAGING REPORT ---
FACILITY: [facility] PATIENT NAME: Godfrey Marino : 1960 MR: [id number] V: [id number] EXAM DATE: ORDERING PHYSICIAN: MARIE SANON TECHNOLOGIST: Location: [facility] [place] Patient: Godfrey Marino : 1960 Visit/Account:[id number] Date of Sevice: 09/29/2017 CHEST SINGLE AP Indication: Multiple falls.. Comparison: 08/09/2017. Findings: Cardiomediastinal silhouette and pulmonary vessels within normal limits. There is no focal infiltrate or lobar consolidation. There is continued blunting the left costophrenic angle which is unchanged, due to small effusion or pleural thickening. No right effusion. No indication of pneumothorax. Stable nodular opacity seen in the left upper lobe. No new nodules. Upper abdomen is unremarkable. Previous partial resection of the left fifth rib. No indication of acu te bony abnormality. IMPRESSION: 1. Stable chest without acute abnormality or indication of thoracic trauma. Report Dictated By: Joseph Olivas at 09/29/2017 4:46 PM Report E-Signed By: Joseph Olivas at 09/29/2017 4:51 PM WSN:[id number]
--- NOTE | 2017-09-29 17:01 | RADIOLOGY IMAGING REPORT ---
FACILITY: [facility] PATIENT NAME: Godfrey Marino : 1960 MR: [id number] V: [id number] EXAM DATE: [id number] ORDERING PHYSICIAN: MARIE SANON TECHNOLOGIST: Location: [facility] Patient: Godfrey Marino : 1960 Visit/Account:[id number] Date of Sevice: 09/29/2017 CT Head without contrast Indication: Multiple falls. Comparison: 12/06/2016. Technique: Axial CT images were obtained through the brain from the skull base to the vertex without administration of IV contrast. Reformatted coronal and sagittal images were also obtained. One of the following dose optimization techniques was utilized in the performance of this exam: autom ated exposure control; adjustment of the mA and/or kV according to the patient's size; or use of an i terative reconstruction technique. Specific details can be referenced in the facility's radiology CT exam operational policy. Findings: No evidence of mass, mass effect, or midline shift. No acute intracranial hemorrhage or acute territorial infarction. No extra-axial fluid collection or hydrocephalus. Age-related cerebral atrophy. Periventricular white matter ischemic changes consistent small vessel disease. Condon/white matter differentiation appears n ormal. Bony structures show no fractures or lesions. Mild mucosal thickening seen in the dependent portion both maxillary sinuses. The remaining sinuses a nd mastoids visualized are clear. IMPRESSION: 1. Continued senescent changes without acute abnormality. 2. Continued mild bilateral maxillary sinus disease. Report Dictated By: Joseph Olivas at 09/29/2017 4:51 PM Report E-Signed By: Joseph Olivas at 09/29/2017 4:57 PM WSN:[id number]
[2017-09-29] MEDS ORDERED: LORazepam 1 MG TAB PO ONE (17:45)
[2017-09-29 17:57] VITALS: BP 165/112
== END 2017-09-29 18:12 | disposition home or self-care (01) ==
LOC: ER 14:55
DX: E87.6 Hypokalemia (principal); Z91.81 History of falling
CPT/HCPCS: 36415; 70450; 71045; 80305; 81001; 82140; 84484; 85025; 93005; 99284; A9270; G0480; 80320; 82040; 82247; 82310; 82374; 82435; 82565; 82947; 84075; 84132; 84155; 84295; 84450; 84460; 84520

== ENCOUNTER → 2017-09-29 | Outpatient (CLI) | payer MEDICARE ==
[2016-06-28 14:18] VITALS: BMI 35.1
== END ==
LOC: AMB 14:12
PROVIDERS: ATTEND Nurse Practitioner
DX: R42 Dizziness and giddiness (principal); R20.2 Paresthesia of skin; R53.1 Weakness; R00.0 Tachycardia, unspecified
CPT/HCPCS: A0425; A0427